=== PATIENT | male | born 1965 | race Two or more races ===

== ENCOUNTER 2021-06-25 15:04 | Inpatient (IN) | payer BC ==
[~2021-06-25] VITALS: Ht 172.7 cm; Wt 99.8 kg
[2021-06-25] MEDS ORDERED: ONDANSETRON HCL 4MG/2ML INJ IV ONE (15:45)
[2021-06-25 16:07] LABS: BASOPHILS % 1.4 % (0.0-2.0); EOSINOPHILS % 3.4 % (0.0-5.0); HEMATOCRIT. 29.1 % (42.0-52.0); HEMOGLOBIN. 9.5 g/dL (14.0-18.0); LYMPHOCYTES % 25.7 % (20.0-50.0); MEAN CORPUSCULAR HEMOGLOBIN 32.7 pg (28.0-32.0); MEAN CORPUSCULAR VOLUME 99.8 fL (80.0-94.0); MEAN PLATELET VOLUME 8.3 fl (7.4-10.4); MONOCYTES % 8.1 % (2.0-8.0); NEUTROPHILS % 61.4 % (40.0-76.0); PLATELET 208 x1000/uL (130-400); RED BLOOD CELL COUNT 2.92 mill/uL (4.7-6.1); RED CELL DISTRIBUTION WIDTH 17.5 % (11.6-14.6)
[2021-06-25 16:13] LABS: CHLORIDE 101 mEq/L (98-107)
[2021-06-25 16:19] LABS: PROTHROMBIN TIME 10.7 sec (9.6-11.0)
[2021-06-25] MEDS ORDERED: DEXTROSE 50% WATER 50ML SYRINGE IV ONE (16:30)
[2021-06-25] MEDS ORDERED: INSULIN REGULAR (HUMULIN R) 300UNITS/3ML VIAL IV ONE (16:30)
[2021-06-25] MEDS ORDERED: SODIUM BICARBONATE 8.4% 1 MEQ/ML 50ML SYR IV ONE (16:30)
[2021-06-25] MEDS ORDERED: CALCIUM CHLORIDE 1GM/10ML SYR IV ONE (16:30)
[2021-06-25] MEDS ORDERED: SEVE800T8 PO (21:31)
[2021-06-25 23:20] VITALS: BP 144/71
[2021-06-26] VITALS (7 sets, daily range): BP systolic 104–151; BP diastolic 54–71
[2021-06-26] MEDS ORDERED: SODIUM POLYSTYRENE SULFONATE 15 G/60 ML BOT PO SCH (02:00)
[2021-06-26] MEDS ORDERED: CLONIDINE 0.1MG TABLET PO PRN (02:00)
[2021-06-26] MEDS ORDERED: DEXTROSE 50% WATER 50ML SYRINGE IV PRN (02:00)
[2021-06-26] MEDS ORDERED: TRAZ-252 PO (04:27)
[2021-06-26] MEDS ORDERED: GLIP10TA10 PO (04:28)
[2021-06-26] MEDS ORDERED: LOSA50TA41 PO (04:28)
[2021-06-26] MEDS ORDERED: ATOR40TA70 PO (04:29)
[2021-06-26] MEDS: BLOOD SUGAR DIAGNOSTIC STRIP TEST SCH ×3 (06:27→16:59)
[2021-06-26] MEDS ORDERED: *PATIENT'S OWN MEDICATION STORAGE XX SCH (07:00)
[2021-06-26] MEDS: INSULIN LISPRO 100 UNITS/ML SUBCUT SCH ×3 (07:50→17:33)
[2021-06-26] MEDS: HEPARIN 5000 UNITS/ML VIAL SUBCUT SCH ×2 (08:19→08:21)
[2021-06-26] MEDS ORDERED: PANTOPRAZOLE SODIUM 40 MG/VIAL IV SCH (09:00)
[2021-06-26 10:06] LABS: BASOPHILS % 0.9 % (0.0-2.0); EOSINOPHILS % 3.5 % (0.0-5.0); HEMATOCRIT. 30.3 % (42.0-52.0); HEMOGLOBIN. 9.8 g/dL (14.0-18.0); LYMPHOCYTES % 20.3 % (20.0-50.0); MEAN CORPUSCULAR HEMOGLOBIN 32.5 pg (28.0-32.0); MEAN CORPUSCULAR VOLUME 100.3 fL (80.0-94.0); MEAN PLATELET VOLUME 8.5 fl (7.4-10.4); MONOCYTES % 7.5 % (2.0-8.0); NEUTROPHILS % 67.8 % (40.0-76.0); PLATELET 195 x1000/uL (130-400); RED BLOOD CELL COUNT 3.03 mill/uL (4.7-6.1); RED CELL DISTRIBUTION WIDTH 17.7 % (11.6-14.6)
[2021-06-26 15:59] LABS: HEPATITIS B SURFACE ANTIGEN NEGATIVE
[2021-06-26] MEDS ORDERED: LOSA50TA3 MT (16:32)
[2021-06-27] MEDS ORDERED: EPOETIN ALFA-EPBX 4,000 UNIT/ML VIAL SUBCUT SCH (21:00)
== END 2021-06-26 20:10 | disposition home or self-care (01) | DRG 640 ==
LOC: ER 15:04 → EDBEDREQ 18:02 → EDBEDREQTM 18:02 → MICUSO 20:11 → 6WST 22:16
PROVIDERS: ADMIT Internal Medicine; ATTEND Internal Medicine
PROC: 5A1D70Z Performance of Urinary Filtration, Intermittent, Less than 6 Hours Per Day (ICD-10-PCS; principal; 2021-06-25)
PROC: 5A1D70Z Performance of Urinary Filtration, Intermittent, Less than 6 Hours Per Day (ICD-10-PCS; 2021-06-26)
DX: E86.0 Dehydration (principal); N18.6 End stage renal disease; I12.0 Hypertensive chronic kidney disease with stage 5 chronic kidney disease or end stage renal disease; N17.9 Acute kidney failure, unspecified; E11.22 Type 2 diabetes mellitus with diabetic chronic kidney disease; G90.8 Other disorders of autonomic nervous system; E11.649 Type 2 diabetes mellitus with hypoglycemia without coma; E11.65 Type 2 diabetes mellitus with hyperglycemia; E87.5 Hyperkalemia; F17.200 Nicotine dependence, unspecified, uncomplicated; D64.9 Anemia, unspecified; Z99.2 Dependence on renal dialysis; Z82.49 Family history of ischemic heart disease and other diseases of the circulatory system; Z86.73 Personal history of transient ischemic attack (TIA), and cerebral infarction without residual deficits
CPT/HCPCS: 36415; 71045; 80048; 80053; 82962; 83036; 84484; 85025; 86705; 86709; 86803; 87340; 93005; 93880; 99291; C9113; J1644; J1815; J2405; J3490